=== PATIENT | female | born 1985 | race Caucasian/White ===

== ENCOUNTER → 2016-11-15 | Outpatient (CLI) | payer BC | LOC: BHSO 11:43 | DX: F31.81 Bipolar II disorder (principal) ==

== ENCOUNTER → 2017-01-17 | Outpatient (CLI) | payer BC | LOC: BHSO 11:40 | DX: F31.81 Bipolar II disorder (principal) ==

== ENCOUNTER → 2017-03-27 | Outpatient (CLI) | payer BC | LOC: COL.RAD 12:56 | DX: M25.551 Pain in right hip (principal); M25.852 Other specified joint disorders, left hip; M25.552 Pain in left hip; Z98.890 Other specified postprocedural states | CPT/HCPCS: J3301; Q9967 ==

== ENCOUNTER → 2017-04-16 | Outpatient (CLI) | payer BC | LOC: BHSO 11:42 | DX: F31.81 Bipolar II disorder (principal) ==

== ENCOUNTER → 2017-07-16 | Outpatient (CLI) | payer BC | LOC: BHSO 11:44 | DX: F31.81 Bipolar II disorder (principal) ==

== ENCOUNTER → 2018-04-01 | Outpatient (CLI) | payer BC | LOC: BHSO 08:41 | DX: F31.81 Bipolar II disorder (principal) | CPT/HCPCS: G0463 ==

== ENCOUNTER → 2018-10-22 | Outpatient (CLI) | payer BC | LOC: BHSO 08:43 | DX: F31.81 Bipolar II disorder (principal) | CPT/HCPCS: G0463 ==

== ENCOUNTER → 2019-04-19 | Outpatient (CLI) | payer BC | LOC: BHSO 14:03 | DX: F31.81 Bipolar II disorder (principal) | CPT/HCPCS: G0463 ==

== ENCOUNTER → 2019-07-21 | Outpatient (CLI) | payer BC | LOC: MC.RAD 10:22 | DX: Z12.31 Encounter for screening mammogram for malignant neoplasm of breast (principal); N60.19 Diffuse cystic mastopathy of unspecified breast | CPT/HCPCS: G0279 ==

== ENCOUNTER → 2019-10-21 | Outpatient (CLI) | payer BC | LOC: BHSO 15:58 | DX: F31.81 Bipolar II disorder (principal) | CPT/HCPCS: G0463 ==

== ENCOUNTER → 2020-04-20 | Outpatient (CLI) | payer BC | LOC: BHSO 16:17 | DX: F31.81 Bipolar II disorder (principal) | CPT/HCPCS: G0463 ==